=== PATIENT | female | born 1955 | race Caucasian/White ===

== ENCOUNTER 2019-04-26 08:12 | Emergency (ER) | payer BC, SELFPAY ==
[2019-04-26 08:13] VITALS: BP 209/125; PULSE 111; RESP 18; TEMP 36.6; O2SAT 98; BMI 35.4
--- NOTE | 2019-04-26 08:29 | ED.DCSUM_ITS ---
History of Present Illness Chief Complaint: Disclocation Informant: Patient Onset: Today Mechanism/Context: Blunt Injury, Fall Quality of Pain: Dull, Aching Location: Left little finger Current Severity: Mild Maximum Severity: Moderate Worsened by: Movement and palpation Relieved by: Not using the left hand Associated Symptoms: Loss of function. Negative for: Parasthesias, Weakness, Inability to ambulate, Loss of consciousness, Amnesia Narrative: She is 63-year-old woman who tripped. She stopped her left little finger. She is right-hand dominant. She presents with deformity to the left little finger. She denies paresthesia, anesthesia motors. She is not on an anticoagulant. She has no other complaints. She denies any other injury. Prior similar symptoms: No Recent Illness/Hospitalization: No Past Medical History - Allergies and Home Meds Allergies/Adverse Reactions: Allergies No Known Allergies Allergy (Verified 04/26/19 08:15) Primary Care Physician: NOT,DEFINED [NON-STAFF] - Surgical History: - - Reduction internal fixation left wrist fracture Lives: Alone Alcohol: None Drugs: None Review of Systems Gastrointestinal: Denies: Nausea, Vomiting Musculoskeletal: Reports: Swelling, Extremity Pain. Denies: Myalgias, Arthralgias, Neck pain, Back pain Skin: Denies: Rash, Abscess, Abrasions, Wounds Neurological: Denies: Weakness, Parasthesia, Numbness Hematologic: Denies: Easy bruising, Easy bleeding Physical Exam Vital Signs/Narrative: Vital Signs Temp Pulse Resp BP Pulse Ox 04/26/19 08:13 98 F 111 H 18 209/125 H 98 Inital Vital Signs reviewed: Yes General: Well nourished, Well developed Head: Normocephalic, Atraumatic Eyes: Perrl, EOMI. Negative for: Pale conjunctiva, Scleral icterus Cardiovascular: Regular rate, Regular rhythm Respiratory: No distress Extremeties: There is deformity with ecchymosis noted left little finger. Capillary refill is normal. Two-point supination is normal. There is no supple hematoma noted. She is able to flex at the DIP joint. She is able to extend at the DIP joint. Skin: Normal color, No rash, Trauma Neurological: Alert, Oriented x3, Cranial nerves II-XII grossly intact, Normal Strength, Normal Sensation Psychological: Normal affect - Glascow Coma Scale Eye Opening: Spontaneous Motor: Obeys Commands Verbal: Oriented Coma Scale Total: 15 Diagnostic/Tx/Re-eval Chest X-Ray - ED: Read by ED Physician, - - Your x-ray of the left hand was obtained. There is a fracture of the proximal phalanx left ring finger there is a proximal phalanx of the left little finger with displacement and angulation. Three-view postreduction film was obtained. Reduction is acceptable. It is difficult to assess because of the ulnar gutter splint. 04/26/19 08:45 Hand Min 3 Views [RAD] Stat - Medical Decision Making The digit was anesthetized by ulnar nerve block using 1% lidocaine by infiltration. A total of 5 cc was infiltrated. X-ray was ordered to determine if she has a fracture versus dislocation versus fracture dislocation of the left little finger. Procedures - Upper Extremity Splints Upper Extremity Splint: Plaster, Ulnar gutter Splint Fabrication: Fabricated Location: Left Procedure(s): 1. Ulnar nerve block. 2. Reduction of displaced angulated f racture proximal phalanx left little finger. 3. Ulnar gutter splint followed by post reduction film. 4. Dr. nancy esquivel was paged to discuss case and arrange follow-up ED Disposition - Plan for ED Patient: Disposition: Home or Assisted Living Diagnosis: Displaced fracture of proximal phalanx of left little finger, initial encounter for closed fracture, Nondisplaced fracture of proximal phalanx of left ring finger Instructions: FRACTURE, Finger (Open) Referrals: NOT,DEFINED [NON-STAFF] - Shantanu Salcedo DO [STAFF PHYSICIAN] - 5-7 Days Additional Instructions: Must keep splint absolutely clean and dry. Elevate hand as much as possible the next 2 to 3 days. Apply ice 20 to 30 minutes per application 6-8 times a day. There is a possibility fracture may move and you would require surgery.
--- NOTE | 2019-04-26 08:45 | RAD_ITS ---
STUDY: X-RAY - LEFT HAND REASON FOR EXAM: Female, 63 years old. Deformity of the fifth digit secondary to a fall. TECHNIQUE: 3 view(s) of the hand. COMPARISON: None. FINDINGS: Prior open reduction internal fixation of the distal radial fracture using screw and plate fixation device. Normal distal radioulnar joint. Normal visualized carpal bones. Normal carpal articulations Normal carpometacarpal articulation of the thumb. Normal second through fifth carpometacarpal joints. Normal metacarpi. Normal metacarpophalangeal joint of the thumb. Normal interphalangeal joint of the thumb. Normal proximal and distal phalanges of the thumb. Normal metacarpophalangeal joints of the second through fifth fingers. There is diffuse articular joint space narrowing of the proximal and distal interphalangeal joints of the second through fifth fingers, but without erosive changes or periarticular soft tissue swelling. Nondisplaced fractures at the base of the fourth and fifth metacarpals. Soft tissue swelling. RAD/Hand Min 3 Views IMPRESSION: Nondisplaced transverse fractures at the base of the fourth and fifth metacarpals with overlying soft tissue swelling. 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 Electronically Signed: Juan Daniel Mendez, at 9:36 EST , Service support ,
--- NOTE | 2019-04-26 09:54 | RAD_ITS ---
STUDY: X-RAY - LEFT HAND REASON FOR EXAM: Female, 63 years old. Post reduction examination. TECHNIQUE: 3 view(s) of the hand. COMPARISON: Comparison is made with prior examination done earlier today. FINDINGS: There is satisfactory reduction of the fractures at the base of the fourth and fifth metacarpals. RAD/Hand Min 3 Views IMPRESSION: Satisfactory reduction of the fractures at the base of the fourth and fifth metacarpals. Electronically Signed: Juan Daniel Mendez, at 10:33 EST , Service support ,
[2019-04-26 10:59] VITALS: BP 121/68; PULSE 74; RESP 15; O2SAT 99
== END 2019-04-26 11:02 | disposition home or self-care (01) ==
PROVIDERS: Emergency Provider Emergency Medicine
DX: S62.617A Displaced fracture of proximal phalanx of left little finger, initial encounter for closed fracture (principal); S62.645A Nondisplaced fracture of proximal phalanx of left ring finger, initial encounter for closed fracture; W01.0XXA Fall on same level from slipping, tripping and stumbling without subsequent striking against object, initial encounter; Y93.9 Activity, unspecified
CPT/HCPCS: 26725; 29125; 73130; 99282